=== PATIENT | male | born 1940 | race Caucasian/White ===

== ENCOUNTER 2017-12-09 21:19 | Observation (INO) | payer MEDICARE ==
[~2017-12-09] VITALS: Ht 185.4 cm; Wt 79.4 kg
--- NOTE | ~2017-12-09 | DS ---
PATIENT:JOHN KAUR :[birth year] MEDICAL RECORD: [id number] DISCHARGE SUMMARY ADMISSION DATE: 12/09/17 DISCHARGE DATE: 12/10/17 DISCHARGE DIAGNOSES: 1. Angina. 2. Coronary artery disease. 3. Percutaneous transluminal coronary angioplasty stent, right coronary artery this admission. HOSPITAL COURSE: Mr. Kaur presents with anginal symptomatology, found to have significant disease of the RCA, underwent successful PTCA stent of the RCA this admission. Mr. Kaur presents with anginal symptomatology, found to have significant disease of the RCA, underwent successful PTCA stent of the RCA, had an uneventful postoperative course, discharged home with the addition of aspirin and Plavix to his medical regimen. We will follow up with [facility] in 1 month. TRANSINT:[id number] Voice Confirmation ID: [id number] DOCUMENT ID: [id number] CIARAN GRECO MD at 1800 CC: [id number] DICTATION DATE: 12/10/17 1237 SMOKING PIPE COATER: 12/11/17 0948 DIS IN 12/10/17 [id number] [place] [address]
--- NOTE | ~2017-12-09 | OP ---
PATIENT NAME: JOHN SOLIS MEDICAL RECORD: [id number] :42 LOCATION:D.M2 D.2117 ADMISSION DATE:12/09/17 SURGEON: CIARAN GERCO MD DATE OF OPERATION: 12/10/2017 PROCEDURES: 1. PTCA stent to RCA through the patent vein graft. 2. Left heart catheterization. 3. Selective coronary angiography. 4. Vein graft angiography. 5. COMER angiography. 6. Left ventriculogram. INDICATION: Angina and coronary artery disease. PROCEDURE IN DETAIL: After informed consent was obtained and after a detailed explanation of the risks, benefits as well as alternative therapies, the patient elected to proceed with angiogram and angioplasty. The right femoral area was prepped and draped in normal sterile fashion. The right femoral artery was cannulated via modified Seldinger technique with placement of 6-Occitan sheath. All catheters exchanged through this sheath. FINDINGS: The left ventriculogram was performed in standard 30-degree CONTI view reveals global hypokinesis throughout all segments. Overall ejection fraction mildly depressed at 40%. SELECTIVE CORONARY ANGIOGRAPHY: 1. Left main is with no significant angiographic disease. 2. Left anterior descending is totally occluded. 3. Left circumflex is totally occluded. 4. Right coronary artery is totally occluded. 5. COMER to the LAD is widely patent. 6. Vein graft to the circumflex is closed. 7. Vein graft to the RCA is patent. Distal RCA has a previously placed stent. There is 80% stenosis proximal to the previously placed stent as well as 80% stenosis after the previously placed stent. PTCA STENT OF THE RCA THROUGH THE VEIN GRAFT: The stent used covering both lesions was a 2.75 x 26 mm Hamler taken to 19 atmospheres. Result was 0% residual stenosis. OVERALL IMPRESSION: Successful percutaneous transluminal coronary angioplasty stent of the right coronary artery through the patent vein graft going from 80% initial stenosis to 0% residual stenosis. TRANSINT:[id number] Voice Confirmation ID: [id number] DOCUMENT ID: [id number] OPERATIVE REPORT [id number] JOHN SOLIS JEFFREY MD at 1800 CC: [id number] DICTATION DATE: 12/10/17 1239 COMMERCIAL INSURANCE UNDERWRITER: 12/10/17 1309 DIS IN 12/10/[address] [place] [address]
--- NOTE | ~2017-12-09 | HEMODYNAMI ---
PATIENT:JOHN SOLIS MEDICAL RECORD: [id number] : 42 [address] [id number] ADMISSION DATE: 12/09/17 Generatedon:12/10/201712:42 Patient name: JOHN SOLIS Patient #: [id number] SSN: DO B: 1940 Date of study: 12/10/2017 Page: Of Hemodynamic Procedure Report Patient Data Patient Demographics Procedure consent was obtained First Name: JOHN Gender: Male Last Name: IRMA : 1940 [facility] Initial: P Age: 77 year(s) Patient #: [id number] Race: Additional ID: [id number] Contact details Address: [address] [address] State: [place] City: [place] Zip code: [address] Past Medical History Allergies: No known allergies Admission Admission Data Admission Date: 12/09/2017 Admission Time: 21:19 Room #: [facility] Procedure Procedure Types Cath Procedure Diagnostic Procedure LHC LHC w/Coronaries PCI Procedure AMI/SVG/SHUTTLE FINAL INSPECTOR PTCA or Stent SVG-BMS/SILAS Initial Miscellaneous Procedures Moderate Sedation up to 15 minutes Procedure Description Procedure Date Procedure Date: 12/10/2017 Procedure Start Time: 12:21 Procedure End Time: 12:41 Procedure Staff Name Function Aram Coronado MD Performing Physician Tanya Gaitan RT Monitor Gregor Ochoa RT Scrub Hans Carias RN Nurse Procedure Data Cath Procedure Fluoroscopy Diagnostic fluoroscopy Total fluoroscopy dose: 808 dose: 808 mGy mGy Contrast Material Contrast Material Type Amount (ml) Isovue 300 128 Entry Location Entry Primary Successful Side Size Upsize Upsize Entry Closure Succes sful Closure Location (Fr) 1 (Fr) 2 (Fr) Remarks Device Remarks Femoral Right 6 Fr Exoseal artery Short Estimated blood loss: 10 ml Diagnostic catheters Device Type Used For End Catheter Placement MULTIPACK Pigtail 5 Fr Procedure catheter MULTIPACK JL 4.0 5Fr Procedure catheter MULTIPACK 3DRC 5Fr Procedure catheter Procedure Complications No complications Procedure Medications Medication Administration Route Dosage Oxygen NC 2 l/min Lidocaine 2% added to field 20 Heparin Flush Bag added to field 2 bags (1000units/500ml NS) 0.9% NaCl I.V. 100 ml/hr Versed I.V. 1 mg Fentanyl I.V. 50 mcg Heparin Bolus I.V. 4000 units Versed I.V. 1 mg Fentanyl I.V. 50 mcg Hemodynamics Rest Pre Cath Intra NCS Post Cath Vital Signs Time Heart Resp SPO2 etCO2 NIBP (mmHg) Rhythm Pain Sedation Rate (ipm) (%) (mmHg) Status Level (bpm) 12:16:25 95 16 98 28.1 142/83(111) NSR 0 (11) 10(A) , No pain 12:21:02 93 14 94 14.4 131/72(93) NSR 0 (11) 10(A) , No pain 12:25:36 90 15 94 17.4 121/74(91) NSR 0 (11) 10(A) , No pain 12:30:13 90 14 94 11.4 120/73(88) NSR 0 (11) 9(A) , No pain 12:34:49 90 14 94 9.8 117/65(93) NSR 0 (11) 9(A) , No pain 12:39:26 93 23 94 26.6 114/66(92) NSR 0 (11) 10(A) , No pain Medications Time Medication Route Dose Verified Delivered Reason Notes Effectiveness by by 12:15:14 Oxygen NC 2 Aram Portilloie used for l/min Cliff Carias RN procedure 12:15:21 Lidocaine 2% added 20ml Aram Chiu for local to vial Cliff Coronado MD anesthetic field 12:15:28 Heparin Flush added 2 Aram Aram used for Bag to bags Cliff Coronado MD procedure (1000units/500ml field NS) 12:15:37 0.9% NaCl I.V. 100 Aram Buffie Per physician ml/hr Cliff Carias RN 12:20:18 Versed I.V. 1 mg Aram Portilloie for sedation Cliff Carias RN 12:20:26 Fentanyl I.V. 50 Aram Bandarie for sedation mcg Cliff Carias RN 12:26:45 Versed I.V. 1 mg Aram Portilloie for sedation Cliff Carias RN 12:26:48 Fentanyl I.V. 50 Aram Maxwell for sedation mcg Cliff Carias RN 12:30:40 Heparin Bolus I.V. 4000 Aram Maxwell for verifi ed units Cliff Carias RN anticoagulation with dr coronado Procedure Log Time Note 11:52:09 Time tracking: Regular hours 11:52:14 Plan of Care:Hemodynamics will remain stable., Cardiac rhythm will remain stable., Comfort level will be maintained., Respiratory function will remain adequate., Patient/ family verbilizes understanding of procedure., Procedure tolerated without complication., Recovers from procedure without complications.. 11:52:17 Signed procedure consent form obtained from patient. 11:52:21 Hans Carias RN sent for patient. Start room use. 12:05:17 Patient received from Med II to CCL 1 Alert and oriented. Tansferred to table in Supine position. 12:05:19 Warm blankets applied, and lewis hugger turned on for patient comfort. 12:05:19 Correct patient and procedure confirmed by team. 12:05:20 ECG and BP/O2 sat monitors applied to patient. 12:05:48 H&P Date Dictated: 12/09/2017 Within 30 days and on chart.. 12:05:51 Pre-procedure instructions explained to patient. 12:05:51 Pre-op teaching completed and patient verbalized understanding. 12:05:54 Family in patients room. 12:05:55 Patient NPO since Midnight. 12:06:02 Patient allergic to No known allergies 12:06:06 Is the patient allergic to Iodine/contrast media? No. 12:08:43 Is patient on blood thinner?Yes 12:08:46 ACC The patient was administered the following blood thiners within the last 24 hours: ACCPlavix 12:08:47 Patient diabetic? No. 12:08:50 Previous problem with sedation/anesthesia? No ? 12:08:51 Snore? No 12:08:51 Sleep apnea? No 12:08:52 Deviated septum? No 12:08:53 Opens mouth fully? Yes 12:08:54 Sticks out tongue? Yes 12:08:57 Airway obstruction? Yes copd 12:09:01 Dentures? Yes in tight 12:15:03 Pre procedure: right dorsailis pedis pulse 2+ Normal; easily identifiable; not easily obliterated 12:15:06 Patient pain scale 0/10 ?. 12:15:14 Oxygen 2 l/min NC was administered by Hans Carias RN; used for procedure; 12:15:16 IV patent on arrival in right antecubital with 0.9% NaCl at O. 12:15:21 Lidocaine 2% 20ml vial added to field was administered by Aram Coronado MD; for local anesthetic; 12:15:28 Heparin Flush Bag (1000units/500ml NS) 2 bags added to field was administered by Aram Coronado MD; used for procedure; 12:15:30 Right groin area was prepped with chlora-prep and draped in sterile fashion 12:15:31 Alarms reviewed by R. N. 12:15:32 Sharps counted by scrub and verified by R.N. 12:15:37 0.9% NaCl 100 ml/hr I.V. was administered by Hans Carias RN; Per physician; 12:15:40 Vital chart was started 12:18:23 --------ALL STOP TIME OUT------ 12:18:24 Final Timeout: patient, procedure, and site verified with staff and physician. All members of the team are in agreement. 12:18:26 Right groin site verified by team. 12:18:29 Physical assessment completed. ASA score P 2 - A patient with mild systemic disease as per Aram Coronado MD. 12:18:32 Sedation plan: IV Moderate Sedation Medication:Versed, Fentanyl 12:18:49 Use device set Femoral Dx 12:18:50 ACIST Syringe (32919) opened to sterile field. 12:18:53 ACIST Hand Control (07112) opened to sterile field. 12:18:53 ACIST Manifold (47797) opened to sterile field. 12:18:54 Tegaderm 4 x 4 (1626W) opened to sterile field. 12:18:56 Bag Decanter () opened to sterile field. 12:18:58 Medline Cath Pack ([id number]) opened to sterile field. 12:19:00 PERCUTANEOUS ENTRY 19GA needle opened to sterile field. 12:19:03 DIAGNOSTIC WIRE .035 260cm J wire (182851) opened to sterile field. 12:19:05 DIAGNOSTIC Multipack 5Fr catheter set ([id number]) opened to sterile field. 12:19:12 SHEATH 6FR [place] (IVX798) opened to sterile field. 12:20:18 Versed 1 mg I.V. was administered by Hans Carias RN; for sedation; 12::26 Fentanyl 50 mcg I.V. was administered by Hans Carias RN; for sedation; 12::57 Procedure started. ::57 Full Disclosure recording started 12:21:00 Local anesthetic to right femoral artery with Lidocaine 2% by Aram Coronado MD.INITIAL ACCESS ONLY 12::57 A 6 Fr Short sheath was inserted into the Right Femoral artery 12::33 Zero performed for pressure channel P1 12::44 Zero performed for pressure channel P1 12::48 Zero performed for pressure channel P1 12::59 Zero performed for pressure channel P1 12:23:07 A MULTIPACK Pigtail 5 Fr catheter was advanced over the wire and used for Procedure. 12:23:20 LV gram done using CONTI 12::24 Injector settings: Ml/sec: 10, Volume: 20, 12:23:49 EF : 40 % 12:23:51 Catheter removed. 12:23:52 Zero performed for pressure channel P1 12:24:04 Zero performed for pressure channel P1 12:24:10 A MULTIPACK JL 4.0 5Fr catheter was advanced over the wire and used for Procedure. 12:24:48 LCA angiography performed. 12:25:04 Catheter removed. 12:25:05 Zero performed for pressure channel P1 12:26:45 Versed 1 mg I.V. was administered by Hans Carias RN; for sedation; 12::48 Fentanyl 50 mcg I.V. was administered by Hans Carias RN; for sedation; 12:27:32 A MULTIPACK 3DRC 5Fr catheter was advanced over the wire and used for Procedure. 12:27:36 COMER to LAD angiography performed. 12:27:37 Catheter removed. 12:27:37 GUIDE 6FR AR 2.0 catheter ([id number]) opened to sterile field. 12:27:47 6 Fr ar2 guide catheter was inserted over the wire 12:28:18 SVG to RCA angiography performed. 12:30:35 INFLATOR Merit BasixCompak (RG2559) opened to sterile field. 12:30:40 Heparin Bolus 4000 units I.V. was administered by Hans Carias RN; for anticoagulation; verified with dr coronado 12:31:20 CHOICE PT Extra Support 182cm wire ([id number]) opened to sterile field. 12:31:21 choice pt 182 wire advanced. 12:31:55 Wire advanced across lesion. 12:33:48 Inflation Number: 1 A CARL RX 2.75 x 26 stent ([id number]) was prepped and advanced across the Aorta Right -> Dist RCA. The stent was deployed at 17 SAM for 0:10 (min:sec). 12:34:49 EXOSEAL 6Fr (EX600) opened to sterile field. 12:35:03 Stent catheter was removed intact over wire. 12:35:04 Wire removed. 12:35:05 Guide catheter removed. 12:35:18 Sheath removed intact; hemostasis achieved with Exoseal to the Right Femoral artery. 12:35:32 Procedure ended.(Physican Out) 12:35:39 Flurop Dose total: 808 12:35:39 Fluoroscopy dose: 808 mGy 12:35:43 Contrast amount:Isovue 300 128ml. 12:35:47 Post-op/insertion site Right Femoral artery dressed using a 4 x 4 and Tegaderm. 12:35:51 Post right femoral artery:stable, soft, clean and dry 12:38:15 Post procedure: right dorsailis pedis pulse 2+ Normal; easily identifiable; not easily obliterated. 12:38:17 Post-procedure physical assessment completed. ASA score P 2 - A patient with mild systemic disease as per Aram Coronado MD. 12:38:21 Post procedure rhythm: unchanged. 12:38:23 Estimated blood loss: 10 ml 12:38:25 Post procedure instruction explained to patient.Patient verbalizes understanding. 12:38:25 Patient needs reinforcement of post procedure teaching. 12:38:57 Procedure type changed to Cath procedure, Diagnostic procedure, LHC, LHC w/Coronaries, PCI procedure, AMI/SVG/SHUTTLE FINAL INSPECTOR PTCA or Stent, SVG-BMS/SILAS Initial, Miscellaneous Procedures, Moderate Sedation up to 15 minutes 12:41:40 Procedure and supply charges have been captured, reviewed, submitted and are correct. 12:41:42 Procedure Complication : No complications 12::44 Vital chart was stopped 12:41:44 See physician's report for complete and final results. 12:41:47 Report given to PCU. 12:41:50 Patient transfered to PCU with Bed. 12:41:56 Procedure ended. 12:41:56 Full Disclosure recording stopped 12:42:01 End room use (Document Last) Intervention Summary Intervention Notes Time ActionType Lesion and Equipment Used Action# Pressure Duration Attributes 12:33:48 Place stent Aorta Right CARL RX 2.75 x 1 17 00:10 -> Dist RCA 26 stent ([id number]) Device Usage Item Name Manufacture Quantity Catalog Number Hospital Part Current M inimal Lot# / Charge Number Stock Stock Serial# Code ACIST Syringe Acist 1 25279 766030 351283 194476 2 0 (93155) Medical Systems Inc ACIST Hand Acist 1 93587 068971 549009 366076 5 Control Medical (41977) Systems Inc ACIST Manifold Acist 1 01319 695720 459690 792307 5 (76094) Medical Systems Inc Tegaderm 4 x 4 3M 1 1626W 212594 675610 039477 5 (1626W) Bag Decanter Microtek 1 2001S 904048 16777 620362 5 (2001S) Medical Inc. Medline Cath Cardinal 1 [id number] 090793 99967 716520 5 adhoclabs ([id number]) PERCUTANEOUS BravoSolution Medical 1 [id number] 597949 014029 5 ENTRY 19GA needle DIAGNOSTIC [facility] [place] 1 371358 105101 374550 481999 3 0 WIRE .035 260cm J wire (763026) DIAGNOSTIC Cardinal 1 KF5967 876279 38977 249443 3 0 Multipack 5Fr Health catheter set ([id number]) SHEATH 6FR Terumo 1 PRL411 537837 637625 681307 4 0 [place] (COL020) MULTIPACK Cardinal 1 006638 5 Pigtail 5 Fr Health catheter MULTIPACK JL Cardinal 1 417456 5 4.0 5Fr Health catheter GUIDE 6FR AR Medtronic 1 [id number] 201624 54890 648841 1 2.0 catheter ([id number]) MULTIPACK 3DRC Cardinal 1 342724 5 5Fr catheter Health INFLATOR Merit Merit 1 EG8805 292020 733040 052267 1 5 [employer] (WR2882) CARL RX 2.75 x Medtronic 1 [id number] 303764 0367288 944697 5 [id number] 26 stent ([id number]) EXOSEAL 6Fr Cardinal 1 EX600 866862 752082 817155 1 0 (EX600) Health CHOICE PT [place] 1 [id number] 313284 434398 503091 5 Extra Support Scientific 182cm wire ([id number]) Signature Audit [place] Stage Time Signature Unsigned Intra-Procedure 12/10/2017 Tanya Gaitan 12:42:17 PM RT(R) Signatures Monitor : Tanya Gaitan Signature : RT Date : Time : [address] [address]
[~2017-12-09 21:19] MED LIST: ASPIRIN325 MG PO; FLOMAX0.4 MG PO; ISOSORBIDE MONO30 M1 PO; LIPITOR10 MG PO; LOPRESSOR25 MG PO; LOTREL 5/20 MG1 CAP PO; NITROMIST8.5 GM SL; NORVASC; PLAVIX75 MG PO; RANEXA500 MG PO; ZANTAC150 MG PO
[2017-12-10 01:11] VITALS: BP 150/93; BMI 19.8
[2017-12-10 05:39] VITALS: BP 115/62
[2017-12-10 08:02] VITALS: BP 147/94
[2017-12-10] MEDS ORDERED: CARAFATE1 G/10 ML PO (09:47)
[2017-12-10 11:04] VITALS: Ht 185.4 cm; Wt 79.4 kg
[2017-12-10 11:29] VITALS: BP 147/94; BP 154/84
[2017-12-10] MEDS ORDERED: PLAVIX75 MG PO (14:53)
== END 2017-12-10 17:51 | disposition home or self-care (01) ==
LOC: OBSVTIME 21:19 → D.M2 21:19
DX: I25.119 Atherosclerotic heart disease of native coronary artery with unspecified angina pectoris (principal); Z95.1 Presence of aortocoronary bypass graft; I10 Essential (primary) hypertension; Z87.891 Personal history of nicotine dependence
CPT/HCPCS: 93459; C9604